=== PATIENT | female | born 1995 | race Caucasian/White ===

== ENCOUNTER 2017-02-27 03:22 | Emergency (ER) | payer OTHER | END 2017-02-27 06:41 | disposition home or self-care (01) | LOC: ER1 03:22 | DX: S40.861A Insect bite (nonvenomous) of right upper arm, initial encounter (principal); F17.200 Nicotine dependence, unspecified, uncomplicated; W57.XXXA Bitten or stung by nonvenomous insect and other nonvenomous arthropods, initial encounter; Z88.2 Allergy status to sulfonamides; Z88.8 Allergy status to other drugs, medicaments and biological substances | CPT/HCPCS: 96374; 96375; 99282; J1200; J2930 ==